=== PATIENT | male | born 1990 | race African-American/Black ===

== ENCOUNTER 2016-10-28 08:36 | Emergency (ER) | payer OTHER ==
[~2016-10-28] VITALS: Ht 170.2 cm; Wt 61.2 kg
--- NOTE | ~2016-10-28 | EKG ---
[place] [address] [address] [facility] [place] [address] ELECTROCARDIOGRAM REPORT Name: CONNER HARRISON Room #: DEP Emmanuel#: [id number] Admission: 10/28/16 Attend Phys: Discharge: 10/28/16 Date of : 89 Report #: [id number] THIS REPORT FOR: //name// [facility] ED Test Date: 2016-10-28 Test Time: 09:08:33 Pat Name: CONNER HARRISON Department: Room: Gender: Ophthalmic Surgeon: [id number] : 1990 Requested By: Freida Willoughby Order Number: [id number] MD: José Miguel iJang Measurements Intervals [place] Rate: 55 P: 46 NC: 166 QRS: 73 QRSD: 82 T: 68 QT: 393 QTc: 376 Interpretive Statements Sinus bradycardia Otherwise no significant abnormality No previous ECG available for comparison Electronically Signed On 10-28-2016 18:27:57 CDT by José Miguel Jiang [email or web address] <ELECTRONICALLY SIGNED> By: José Miguel Jiang MD, [facility] 10/28/16 1827 0908 7 José Miguel Jiang MD, FACC /EPI
[~2016-10-28 08:36] MED LIST: NOHOMEMEDICATIONS; NORCO 5-325 TA1 EACH PO
[2016-10-28] MEDS ORDERED: VALIUM5 MG PO (08:46)
[2016-10-28 09:19] VITALS: BP 114/76
== END 2016-10-28 08:47 | disposition home or self-care (01) ==
LOC: ER 08:36
DX: M54.12 Radiculopathy, cervical region (principal); G43.909 Migraine, unspecified, not intractable, without status migrainosus; F17.210 Nicotine dependence, cigarettes, uncomplicated